=== PATIENT | male | born 1990 | race Caucasian/White ===

== ENCOUNTER → 2017-11-08 | Outpatient (CLI) | payer OTHER | LOC: BMCIMAGING 15:40 | PROVIDERS: ATTEND Internal Medicine Rheumatology | DX: M54.5 Low back pain (principal) ==

== ENCOUNTER 2018-08-02 10:45 | Emergency (ER) | payer OTHER ==
--- NOTE | 2018-08-02 11:09 | EDPHY ---
H & P Stated Complaint: syncope Time Seen by Provider: 08/02/18 11:09 - Personal History Current Tetanus/Diphtheria Vaccine: Unsure Current Tetanus Diphtheria and Acellular Pertussis (TDAP): Unsure - Medical/Surgical History Hx Asthma: No Hx Chronic Respiratory Disease: No Hx Diabetes: No Hx Cardiac Disease: No Hx Renal Disease: No Hx Cirrhosis: No Hx Alcoholism: No Hx HIV/AIDS: No Hx Splenectomy or Spleen Trauma: No - Social History Smoking Status: Never smoked Constitutional: Initial Vital Signs Temperature (C) 36.9 C 08/02/18 10:58 Heart Rate 69 08/02/18 10:58 Respiratory Rate 16 08/02/18 10:58 Blood Pressure 125/70 H 08/02/18 10:58 O2 Sat (%) 99 08/02/18 10:58 O2 Delivery Mode Room Air Allergies/Adverse Reactions: No Known Allergies Allergy (Unverified 08/02/18 10:57) Home Medications: Medication Instructions Recorded Ibuprofen 08/02/18 Medical Decision Making ED Course/Re-evaluation: CHIEF COMPLAINT: Syncope HISTORY OF PRESENT ILLNESS: The patient is a 28 y/o male with a history of sciatica arriving via EMS for syncope. For around 2-3 years he has had back pain which has required imaging including an MRI which revealed a protrusion. He has had injections and steroids for the pain without relief of symptoms. He then saw Dr. Zhu, neurosurgeon, for his sciatica. The patient was had worsening sciatica for 1 month. Due to this pain he has been in bed. Today he went to work for several hours, before he had a syncopal episode due to the pain. No fever, headache, body aches, lightheadedness, chest pain, heart palpitations, shortness of breath , cough, abdominal pain, urinary or bowel complaints, numbness, paresthesias. REVIEW OF SYSTEMS: A comprehensive 10 system review of systems is otherwise negative aside from elements mentioned in the history of present illness and medical decision making. PHYSICAL EXAM: HR, BP, O2 Sat, RR. Temp noted General Appearance: Alert, well hydrated, appropriate, and non-toxic appearing. Head: Atraumatic without scalp tenderness or obvious injury Eyes: Pupils equal, round, reactive to light and accommodation, EOMI, no trauma , no injection. Ears: Clear bilaterally, no perforation, normal landmarks Nose: Atraumatic, no rhinorrhea, clear. Throat: There is no erythema or exudates, no lesions, normal tonsils, mucus membranes moist. Neck: Supple, 2+ carotid upstroke, nontender, no lymphadenopathy. Respiratory: No retractions, no distress, no wheezes, and no accessory muscle use. Lungs are clear to auscultation bilaterally. Cardiovascular: Regular rate and rhythm, no murmurs, rubs, or gallops. Bilateral carotid, radial, dorsalis pedis, and posterior tibial pulses intact. Good capillary refill all extremities. Gastrointestinal: Abdomen is soft, nontender, non-distended, no masses, no rebound, no guarding, no peritoneal signs. Musculoskeletal: Normal active ROM of all extremities, atraumatic. Neurological: Alert, appropriate, and interactive. The patient has normal DTRs and non-focal cranial nerves, motor, sensory, and cerebellar exam. Skin: No rashes, good turgor, no nodules on palpation. Past medical history: Sciatica Past surgical history: Denies Family history: Denies Social history: Employed, lives in [place], single. DIAGNOSTICS/PROCEDURES/CRITICAL CARE TIME: EKG: The 12 lead EKG was interpreted by myself as sinus rhythm with a rate of 67 , non-ischemic, normal intervals, he does have early repolarization. See hard copy and/or "[email or web address]" electronic copy for interpretation. DIFFERENTIAL DIAGNOSIS: The differential diagnosis for the patient's syncope included but was not limited to vasovagal syncope, arrhythmia, dehydration, cardiogenic causes, neurogenic causes, and blood loss. MEDICAL DECISION MAKING: The patient is a 28 y/o male with a history of sciatica arriving via EMS for syncope. For around 2-3 years he has had back pain which has required imaging including an MRI which revealed a protrusion. He has seen Dr. Zhu, neurosurgeon, and had injections and steroids for the pain without relief of symptoms. Today he went to work for several hours, before he had a syncopal episode due to the pain. Patient has a normal physical exam. EKG and labs ordered. 1115: I interpreted patient's EKG as sinus rhythm with a rate of 67, non- ischemic, normal intervals, he does have early repolarization. 1208: Reassessed patient and discussed normal EKG and laboratory findings. I suspect he had a vasovagal syncope due to the pain. Return precautions provided ; patient is comfortable with this plan. - Data Points Laboratory Results: Laboratory Results 08/02/18 11:28 08/02/18 11:28 08/02/18 08/02/18 08/02/18 11:32 11:28 11:28 WBC 6.44 10^3/uL 10^3/uL (3.80-9.50) RBC 5.28 10^6/uL 10^6/uL (4.40-6.38) Hgb 16.2 g/dL g/dL (13.7-17.5) Hct 46.5 % % (40.0-51.0) MCV 88.1 fL fL (81.5-99.8) MCH 30.7 pg pg (27.9-34.1) MCHC 34.8 g/dL g/dL (32.4-36.7) RDW 12.2 % % (11.5-15.2) Plt Count 140 10^3/uL L 10^3/uL (150-400) MPV 13.3 fL H fL (8.7-11.7) Neut % (Auto) 80.6 % H % (39.3-74.2) Lymph % (Auto) 12.7 % L % (15.0-45.0) [place] % (Auto) 5.6 % % (4.5-13.0) Eos % (Auto) 0.3 % L % (0.6-7.6) Baso % (Auto) 0.5 % % (0.3-1.7) Nucleat RBC Rel Count 0.0 % % (0.0-0.2) Absolute Neuts (auto) 5.19 10^3/uL 10^3/uL (1.70-6.50) Absolute Lymphs (auto) 0.82 10^3/uL L 10^3/uL (1.00-3.00) Absolute Monos (auto) 0.36 10^3/uL 10^3/uL (0.30-0.80) Absolute Eos (auto) 0.02 10^3/uL L 10^3/uL (0.03-0.40) Absolute Basos (auto) 0.03 10^3/uL 10^3/uL (0.02-0.10) Absolute Nucleated RBC 0.00 10^3/uL 10^3/uL (0-0.01) Immature Gran % 0.3 % % (0.0-1.1) Immature Gran # 0.02 10^3/uL 10^3/uL (0.00-0.10) Sodium 138 mEq/L mEq/L (135-145) Potassium 4.3 mEq/L mEq/L (3.5-5.2) Chloride 103 mEq/L mEq/L (97-110) Carbon Dioxide 25 mEq/l mEq/l (22-31) Anion Gap 10 mEq/L mEq/L (6-14) BUN 27 mg/dL H mg/dL (7-23) Creatinine 0.9 mg/dL mg/dL (0.7-1.3) Estimated GFR > 60 Glucose 95 mg/dL mg/dL (70-100) Calcium 9.7 mg/dL mg/dL (8.5-10.4) POC Troponin I 0.00 ng/mL ng/mL (0.00-0.08) Point of Care Test Results: Chemistry 08/02/18 11:32 POC Troponin I 0.00 ng/mL ng/mL (0.00-0.08) Departure - Departure Disposition: Home, Routine, Self-Care Clinical Impression: Syncope Qualifiers: Syncope type: vasovagal syncope Qualified Code(s): R55 - Syncope and collapse Condition: Good Instructions: Syncope (ED) Additional Instructions: 1. Follow-up with your primary care physician within 72 hours. 2.Return to the emergency department immediately for recurrence of headache, nausea, vomiting, numbness, weakness, neck pain, fever or other concerns. Referrals: Sumi Dow MD [Primary Care Provider] - As per Instructions Report Scribed for: Kash Reyes Report Scribed by: Cynthia Ramirez Date of Report: 08/02/18 Time of Report: 11:56
[2018-08-02 11:52] LABS: PLATELET COUNT 140 10^3/uL (150-400)
--- NOTE | 2018-08-02 12:17 | CPEKG ---
Test Reason : OPEN Blood Pressure : / mmHG Vent. Rate : 067 BPM Atrial Rate : 069 BPM P-R Int : 157 ms QRS Dur : 115 ms QT Int : 399 ms P-R-T Axes : 060 074 054 degrees QTc Int : 422 ms Sinus rhythm Nonspecific intraventricular conduction delay ST elev, probable normal early repol pattern Confirmed by Kash Reyes ([id number]) on 08/02/2018 12:17:16 PM Referred By: Kash Reyes Confirmed By:Kash Reyes
[2018-08-02 12:18] VITALS: BP 119/65
== END 2018-08-02 12:16 | disposition home or self-care (01) ==
DX: R55 Syncope and collapse (principal)
CPT/HCPCS: 84484-ER

== ENCOUNTER → 2018-09-03 | Outpatient (CLI) | payer OTHER | LOC: FIMAGING 17:52 | PROVIDERS: ATTEND Physician Assistant Medical | DX: Z01.810 Encounter for preprocedural cardiovascular examination (principal); M54.10 Radiculopathy, site unspecified ==